=== PATIENT | male | born 1970 | race Caucasian/White ===

== ENCOUNTER → 2017-12-06 | Outpatient (CLI) | payer OTHER ==
[2017-12-06 12:41] LABS: BASO % 0.6 %; BASO ABS # 0.04 K/uL (0-0.2); EOS % 4.1 %; EOS ABS # 0.27 K/uL (0-0.5); HEMATOCRIT 46.9 % (42-52); HEMOGLOBIN 16.5 g/dL (14.0-18.0); IG# 0.01 K/uL (0.00-0.02); LYMPH % 36.4 %; MEAN CORPUSCULAR HEMOGLOBIN 30.6 pg (25-34); MEAN CORPUSCULAR HGB CONC 35.2 g/dl (32-36); MEAN PLATELET VOLUME 10.3 fL (7.4-10.4); MONO % 5.5 %; MONO ABS # 0.36 K/uL (0.11-0.59); NEUT % 53.2 %; NEUT ABS # 3.51 K/uL (1.4-6.5); PLATELET COUNT 173 K/uL (130-400); RED CELL DISTRIBUTION WIDTH CV 13.1 % (11.5-14.5); RED CELL DISTRIBUTION WIDTH SD 41.5 fL (36.4-46.3); WHITE BLOOD COUNT 6.59 K/uL (4.8-10.8)
[2017-12-06 13:04] LABS: PROLACTIN 3.89 ng/mL; TESTOSTERONE,TOTAL 347.3 ng/dl
[2017-12-06 13:05] LABS: HEMOGLOBIN A1C 5.9 % (4.5-5.6)
[2017-12-06 15:48] LABS: BLOOD UREA NITROGEN 23 mg/dl (7-18); CALCIUM 8.8 mg/dl (8.5-10.1); CARBON DIOXIDE 23 mmol/L (21-32); CHOLESTEROL 143 mg/dl (0-200); CREATININE 0.86 mg/dl (0.60-1.40); GLUCOSE 101 mg/dl (70-99); POTASSIUM 3.9 mmol/L (3.5-5.1); SODIUM 142 mmol/L (136-145)
[2017-12-06 15:58] LABS: LDL CHOLESTEROL CALCULATED 81 mg/dl
== END | disposition home or self-care (01) ==
LOC: C.LABMFLN 10:12
PROVIDERS: ATTEND Student in an Organized Health Care Education/Training Program
DX: I10 Essential (primary) hypertension (principal); N52.9 Male erectile dysfunction, unspecified; R73.9 Hyperglycemia, unspecified

== ENCOUNTER 2023-02-07 12:31 | Inpatient (IN) ==
[2023-02-07] MEDS ORDERED: PIPERACILLIN/TAZOBACTAM 4.5 GM/120 ML BAG IV ONE (12:45)
[2023-02-07] MEDS ORDERED: SODIUM CHLORIDE 0.9% 1000ML 1,000 ML IV ONE (12:45)
--- NOTE | 2023-02-07 12:50 | Emergency Department Note ---
History of Present Illness General Chief complaint: Abnormal Labs/Diagnostic Testing Stated complaint: DIVERTICULITIS,ABNORMAL CT SCAN Time Seen by Provider: 02/07/23 12:36 Source: patient, RN notes reviewed and old records reviewed (Office notes were reviewed from today) Mode of arrival: ambulatory Limitations: no limitations History of Present Illness Maximum Pain Intensity: 8 This patient is a 53-year-old male who comes in with abdominal pain since Saturday. He says has been severe at times its central and all over he says he feels when he sits down there is rectal pressure up into the abdomen. No fever but has had some chills no nausea vomiting feels extremely exhausted and tired. No blood or melena stool but his stools been loose. No chest pain or shortness of breath . no dysuria hematuria. no fall or trauma he was seen by his doctor today and they ordered outpatient labs and a CAT scan. The CAT scan showed diverticulitis with either a large diverticulum or a walled off perforation. They sent him to the ER Home Medications Medication Instructions Recorded Confirmed Type wear work shoes instead of boots #1 ea 01/05/22 11/30/22 Rx due to Winn's tendonitis atorvastatin 10 mg tablet 10 mg PO DAILY #30 tabs 11/30/22 02/07/23 Rx metformin 500 mg tablet,extended 500 mg PO BID #60 tabs 11/30/22 02/07/23 Rx release 24hr sertraline 100 mg tablet 150 mg PO .QHS #45 tabs 11/30/22 02/07/23 Rx triamterene 37.5 1 cap PO QAM #30 caps 11/30/22 02/07/23 Rx mg-hydrochlorothiazide 25 mg capsule lancets (Accu-Chek Softclix #100 ea 12/10/22 Rx Lancets) blood sugar diagnostic #100 ea 12/31/22 Rx Allergies Allergy/AdvReac Type Severity Reaction Status Date / Time No Known Allergies Allergy Unknown Verified 02/07/23 09:29 Past Med/Surg History Medical History Allergic rhinitis Anxiety Chronic low back pain Cough Dyslipidemia Dyslipidemia Has daytime drowsiness Hyperglycemia Hypertension Hypertension Left Achilles tendinitis Meniere's disease Meniere's disease of left ear Onychomycosis ZULMA (obstructive sleep apnea) Prediabetes Restless leg syndrome Right rotator cuff tendinitis Snoring Tinnitus of left ear Type 2 diabetes mellitus Urinary frequency Vasovagal episode Witnessed apneic spells Surgical History History of wisdom tooth extraction Hx of inguinal hernia surgery Status post tonsillectomy Family History Mother Breast cancer Grandmother (Maternal) Family history of diabetes mellitus Grandmother (Paternal) Family history of esophageal cancer Other No family history of adverse response to anesthesia Social History Smoking Status: Former smoker Age Started Using Tobacco: 10; Second Hand Exposure: Yes (fiance smokes/parents smoked); Do You Dip or Chew Tobacco: No; Hx Alcohol Use: Yes Alcohol type: other Hx Substance Use: No Preferred Language: Tamazight Communication Ability: Effective Layer Off Required: No Beliefs That Will Affect Care: None Current Living Situation: Spouse Current Living Situation Comment: Lives with ellen Other Information That Helps Us Care for You: No Feels Safe at Home: Yes Safety Concerns: Feels Safe At This Time Childhood Exposure to Second-Hand Smoke: Yes Assistive Devices: Glasses Review of Systems A total of 10 systems reviewed and were otherwise negative Physical Exam Vital Signs Vital Signs - 24 hr 02/07/23 12:32 02/07/23 13:03 02/07/23 14:30 Temperature 38.0 C H Temperature Source Temporal Artery Scan Pulse Rate 76 Pulse Rate [Apical] 73 71 Respiratory Rate 18 20 18 Respiratory Effort / Characteristics Non-Labored Spontaneous Non-Labored Spontaneous Non-Labored Spontaneous Respiratory Depth Normal Normal Normal Blood Pressure 130/84 Blood Pressure [Right Arm] 131/84 129/73 Blood Pressure Mean 99 Blood Pressure Mean [Right Arm] 99 91 Blood Pressure Position Sitting Pulse Oximetry 94 96 94 Oxygen Delivery Method Room Air Room Air Room Air Sepsis Recent Fever Within 48 Hours Yes Sepsis New/Unexplained Change in Mental Status No Sepsis Action Taken by Nursing No Action Required General: Well developed well nourished [id number] middle-age male who in no acute distress, breathing comfortably on room air. Normal speech HEENT: Normal cephalic atraumatic. Pupils are equal round and reactive to light. Extraocular movements are intact. Oropharynx is pink with moist mucous membranes. No swelling of the mouth lips or tongue. Neck: Supple with a midline trachea. No meningeal signs or stiffness, no JVD or bruits. No Stridor. Chest: Clear to auscultation bilaterally. No wheezes or rhonchi. No increased work of breathing. Heart: Regular rate and rhythm without murmurs or gallops. Abdomen: Soft moderately tender diffusely mostly centrally without rebound guarding or rigidity. Extremities: No cyanosis clubbing or edema. No calf tenderness or assymetry Spine/Back. Non tender to palpation. No CVA tenderness Skin: Good turgor without rashes. Neurologic exam: Cranial nerves two through 12 are intact. Motor and sensation are intact and symmetrical throughout. Course Administered Medications Enoxaparin Sodium (Enoxaparin Inj 40 Mg/0.4 Ml Syr) 40 mg SQ Q24H [facility] Stop: 03/09/23 15:53 Last Admin: 02/07/23 18:13 Dose: 40 mg Documented By: HEYDI Lactated Ringer's (Lr) 1,000 mls @ 100 mls/hr IV .Q10H ARLYN Stop: 02/08/23 14:59 Last Admin: 02/07/23 17:22 Dose: 100 mls/hr Documented By: HEYDI Piperacillin Sod/Tazobactam (Sod 4.5 gm/ Dextrose) 120 mls @ 30 mls/hr IV Q8H [facility]; Protocol Stop: 02/17/23 15:53 Last Admin: 02/07/23 18:13 Dose: 30 mls/hr Documented By: HEYDI Insulin Aspart (Insulin Aspart Per Unit Charge) 0 units SC Q6H ARLYN Stop: 03/09/23 15:14 Last Admin: 02/07/23 17:28 Dose: Not Given Documented By: HEYDI Discontinued Medications Sodium Chloride (Nss 1000ml) 1,000 mls @ 999 mls/hr IV .Q1H1M ONE Stop: 02/07/23 13:45 Last Infusion: 02/07/23 14:02 Dose: 0 mls/hr Documented By: Admin: 02/07/23 12:59 Dose: 999 mls/hr Documented By: MICKEY Piperacillin Sod/Tazobactam Sod (Zosyn) 4.5 gm in 120 mls @ 240 mls/hr IV NOW ONE Stop: 02/07/23 13:14 Last Infusion: 02/07/23 14:02 Dose: 0 mls/hr Documented By: Admin: 02/07/23 12:59 Dose: 240 mls/hr Documented By: MICKEY Medical Decision Making Differential Diagnosis Diverticulitis, perforation, diverticular abscess, electrolyte or metabolic abnormality Medical Records Attestation: I reviewed the patient's medical records. Home Medications Current Medication List: was personally reviewed by me Laboratory Data Attestation: I reviewed the patient's lab results. Lab Results 02/07/23 02/07/23 02/07/23 Range/Units 12:52 12:54 13:15 Lactate 0.9 (0.4-2.0) mmol/L Lipase 42 (11-82) U/L SARS-CoV-2, RNA, NAAT NEGATIVE (NEGATIVE) Imaging Data Attestation: I personally reviewed and interpreted this imaging study as follows: My Impression: I reviewed the images that the patient had done as an outpatient of CAT scan of the abdomen and pelvis. There was no free air or obstruction. There are changes consistent with diverticulitis Radiologist's Impression: CAT scan of the abdomen pelvis done as an outpatient today showed a large diverticulum versus contained perforation of the left side of the distal sigmoid colon measuring 2.6 cm with inflammatory surrounding changes consistent with acute diverticulitis ECG Data Attestation: I personally reviewed and interpreted this ECG as follows: Indication: + abdominal pain Rate (beats per minute): 75 Rhythm: + normal sinus ECG Intervals/blocks: + Normal QRS, + Normal QT and + Normal MO ECG Bieber: + Normal ECG ST segments: + Normal ST segments ECG Findings: no PACs or no PVCs Comparison ECG Date: from (01/03/21) Change: no significant change MDM Narrative This patient was sent to the ER after having abnormal CAT scan and it looks like he has diverticulitis and possibly a perforation. He does have a temperature 38 here. He was hydrated with IV normal saline blood work was obtained including blood cultures and lactic acid and other blood testing. I did give him Zosyn 4.5 g IV. His white count was elevated his lactic acid is not. He is normotensive. He was hydrated with normal saline and is well as given the antibiotics. I did discuss the case with Laura Peralta, who is on-call for surgery and did not feel is likely acute surgical issue and they would follow the patient along and have the patient admitted to medicine. I did consult the [facility] group, and they will be admitted him to the hospital for admission. Continuous cardiac monitoring: Orders placed in EMR for continuous cardiac monitoring: Upon my evaluation the patient was noted be in normal sinus rhythm with a rate of 70 Impression & Plan Acute diverticulitis, Type 2 diabetes mellitus, Abdominal pain, Lab test negative for COVID-19 virus Discharge Plan Visit Data Chief Complaint: Abnormal Labs/Diagnostic Testing Stated Complaint: DIVERTICULITIS,ABNORMAL CT SCAN ED Provider: Dewey Bhatti Discharge Problem: Acute diverticulitis, Type 2 diabetes mellitus, Abdominal pain, Lab test negative for COVID-19 virus Patient Disposition: Admitted As Inpatient Discharge Instructions Interventions: ED Discharge Assessment Last Done: 02/07/23 15:23
--- NOTE | 2023-02-07 14:19 | Electrocardiogram Report ---
Test Reason : Blood Pressure : / mmHG Vent. Rate : 075 BPM Atrial Rate : 075 BPM P-R Int : 164 ms QRS Dur : 090 ms QT Int : 382 ms P-R-T Axes : 046 020 032 degrees QTc Int : 426 ms Normal sinus rhythm Normal ECG When compared with ECG of 03-JAN-2005 09:57, No significant change was found Confirmed by Mason Carty ([id number]) on 02/07/2023 2:19:40 PM Referred By: REFERRED SELF Confirmed By:Luis Carty
--- NOTE | 2023-02-07 14:52 | History & Physical Report ---
Date of Service February 07, 2023 Assessment & Plan (1) Acute diverticulitis: Plan: -Admit to med/surge -The patient is currently afebrile, hemodynamically stable, and stable on RA -Has been experiencing LLQ abd pain and non-bloody diarrhea since Saturday -Outpatient CT of the abd/pelvis today shows acute diverticulitis with a 2.6 cm area in the distal sigmoid colon which may represent a contained perforation -Mild leukocytosis, lactate WNL, evaluated by Gen Surgery who recs conservative management for now, they will continue to follow -S/P one dose of Zosyn in the ED, will continue with Zosyn q8h for now -Will keep NPO except meds for now, continue IV fluids while NPO -Pain control with prn IV tylenol and IV morphine for severe pain -BL SCD's and Sub-Q lovenox for DVT PPX -AM CBC, CMP, Mag, PT/INR (2) Diarrhea: Plan: -Stool cultures and C. diff screen ordered (3) Hypertension: Plan: -Stable -Hold Triamterene-HCTZ for now while NPO to avoid dehydration and hypotension (4) Type 2 diabetes mellitus: Plan: -Hold metformin -Monitor BSG q6h while NPO, goal is 110-140 -Start 5 units lantus BID and correction factor of 50 while npo, can escalate as needed -NPO except meds for now (5) Dyslipidemia: Plan: -Continue statin (6) ZULMA (obstructive sleep apnea): Plan: -HS CPAP ordered Plan The patient was discussed with Dr. Morel at the time of the admission History of Present Illness Chief Complaint: Abnormal outpatient CT findings Primary Care Provider: Epifanio Ocampo MD Elliot is a 53 year old male with a PMH significant for DM II, dyslipidemia, ZULMA, HTN, Meniere's disease, and anxiety who presented to the [facility] ED on 02/07/23 at the recommendation of his PCP for abnormal outpatient CT results. Per the ED staff and chart review, the patient has been experiencing progressive abdominal pain and diarrhea. He was seen for these symptoms earlier today by his PCP who ordered a CT of the abd/pelvis with IV contrast. The CT was read as "1. There is a large diverticulum versus contained perforation along the left side of the distal sigmoid colon which measures 2.6 cm. This demonstrates surrounding inflammatory change is consistent with an acute diverticulitis.2. Cholelithiasis. 3. Heterogeneous area of enhancement within the upper pole of the left kidney. No surrounding inflammatory change. This is indeterminate but could be due to a focal pyelonephritis. Recommend correlation with urinalysis.". His PCP recommended he come to the ED for further evaluation and treatment. In the ED the patient was found to be afebrile, hemodynamically stable, and stable on RA. Labs were remarkable for a leukocytosis of 12.94 with left shift of 9.32, stable Hgb and platelets, stable Cr and electrolytes, lactate of 0.9, LFT's WNL, lipase of 42, UA with 2+ ketones otherwise WNL, and covid negative. The ED staff spoke with General Surgery who recommended conservative management for now with IV antibiotics, bowel rest, and IV fluids. Prior to admission the patient was given a dose of Zosyn and a 1L NSS bolus. At the time of the exam the patient was lying in bed in no acute distress, he had just been evaluated by the Surgical Team. He states that he started to develop severe, intermittent, sharp, LLQ abdominal pain on Saturday. He states that he then began to develop multiple episodes daily of non-bloody diarrhea. He states that he would often get the sensation that he needed to have a bowel movement but would then either have a small BM or none at all. He denies the abdominal pain radiating anywhere else, he does not think his pain is influenced with eating or drinking. He did not take any medications for his symptoms as he thought it was a viral GI infection. He denies recent fevers or chills, chest pain, nausea, vomiting, dysuria, hematuria, melena, LE swelling and recent trauma. We discussed code status, the patient is a Full Code and would want his to make medical decisions for him if he could not make them himself. Please refer to Dr. Morel's attestation for any changes to the treatment plan Allergies Allergy/AdvReac Type Severity Reaction Status Date / Time No Known Allergies Allergy Unknown Verified 02/07/23 09:29 Home Medications Medication Instructions Recorded Confirmed Type wear work shoes instead of boots #1 ea 01/05/22 11/30/22 Rx due to Whitney's tendonitis atorvastatin 10 mg tablet 10 mg PO DAILY #30 tabs 11/30/22 02/07/23 Rx metformin 500 mg tablet,extended 500 mg PO BID #60 tabs 11/30/22 02/07/23 Rx release 24hr sertraline 100 mg tablet 150 mg PO .QHS #45 tabs 11/30/22 02/07/23 Rx triamterene 37.5 1 cap PO QAM #30 caps 11/30/22 02/07/23 Rx mg-hydrochlorothiazide 25 mg capsule lancets (Accu-Chek Softclix #100 ea 12/10/22 Rx Lancets) blood sugar diagnostic #100 ea 12/31/22 Rx Past Med/Surg History Medical History Allergic rhinitis Anxiety Chronic low back pain Cough Dyslipidemia Dyslipidemia Has daytime drowsiness Hyperglycemia Hypertension Hypertension Left Achilles tendinitis Meniere's disease Meniere's disease of left ear Onychomycosis ZULMA (obstructive sleep apnea) Prediabetes Restless leg syndrome Right rotator cuff tendinitis Snoring Tinnitus of left ear Type 2 diabetes mellitus Urinary frequency Vasovagal episode Witnessed apneic spells Surgical History History of wisdom tooth extraction Hx of inguinal hernia surgery Status post tonsillectomy Family History Mother Breast cancer Grandmother (Maternal) Family history of diabetes mellitus Grandmother (Paternal) Family history of esophageal cancer Other No family history of adverse response to anesthesia Social History Smoking Status: Former smoker Age Started Using Tobacco: 10; Second Hand Exposure: Yes (fiance smokes/parents smoked); Do You Dip or Chew Tobacco: No; Hx Alcohol Use: Yes Alcohol type: other Hx Substance Use: No Preferred Language: Honduran Communication Ability: Effective Operations And Maintenance Technician Required: No Beliefs That Will Affect Care: None Current Living Situation: Spouse Current Living Situation Comment: Lives with fiance Other Information That Helps Us Care for You: No Feels Safe at Home: Yes Safety Concerns: Feels Safe At This Time Childhood Exposure to Second-Hand Smoke: Yes Assistive Devices: Glasses Review of Systems Review of Systems: Denies current fever, chills, headache, changes in vision, hearing, taste, and smell, chest pain, SOB, cough, nausea, vomiting, hematemesis, melena, dysuria, hematuria, and recent falls. All systems have been reviewed and are otherwise negative. Physical Exam Physical Exam: Physical Exam: General: In no acute distress, stated age, well-nourished, good hygiene HEENT: Normocephalic, atraumatic, no scleral icterus, pupils around round, symmetrical, and reactive to light, dry mucus membranes, trachea midline, no thyromegaly Chest/Pulm: No respiratory distress, symmetrical chest expansion, clear breath sounds throughout Cardiac: RRR, no murmurs noted Abdomen: Negative for ascites and bruising, hyperactive bowel sounds, soft, tender to palpation in the LLQ otherwise non-tender to palpation Musculoskeletal: Symmetrical and without signs of acute trauma, upper and lower extremities with full ROM, no atrophy, spasticity, or flaccidity Extremities: Radial, dorsalis pedis, and posterior tibial pulses are intact and symmetrical, no edema noted in the BL LE's Skin: Warm, dry, no rashes , lesions, or scars noted Neuro: Alert and oriented to person, place, month, year, and president, no focal defects, no tremors noted Psych: No acute distress, calm and cooperative during the exam Results & Data Results & Data Vital Signs (Past 12 Hours) Vital Signs Temp Pulse Pulse Resp BP BP Pulse Ox 02/07/23 14:30 71 18 129/73 94 02/07/23 13:03 73 20 131/84 96 02/07/23 12:32 38.0 C H 76 18 130/84 94 O2 Del Method 02/07/23 14:30 Room Air 02/07/23 13:03 Room Air 02/07/23 12:32 Room Air Laboratory Results Laboratory Results - last 24 hr 02/07/23 02/07/23 02/07/23 12:52 12:54 13:15 Lactate 0.9 Lipase 42 SARS-CoV-2, RNA, NAAT NEGATIVE Diagnostic Findings ABDOMEN AND PELVIS CT WITH IV CONTRAST CT DOSE: 918.16 mGy.cm HISTORY: Nausea. Vomiting. R19.7 - Diarrhea, unspecified TECHNIQUE: Multiaxial CT images of the abdomen and pelvis were performed following the use of intravenous contrast. A dose lowering technique was utilized adhering to the principles of ALARA. COMPARISON STUDY: None. FINDINGS: The lung bases are clear. No pneumoperitoneum. No pneumatosis. No acute fractures identified. Hepatic steatosis. Areas of focal fatty sparing at the tereso hepatis and adjacent to the gallbladder fossa. There is a 1 cm stone within the gallbladder fundus. No gallbladder wall thickening. The pancreas, spleen, and adrenal glands unremarkable. The main portal vein is patent. No retroperitoneal lymphadenopathy. Normal caliber abdominal aorta. There are 2 subcentimeter hypodense lesions within the right kidney with the largest measuring 8 mm. These are technically too small to characterize but favor cysts. No hydronephrosis. Focal area of heterogeneous enhancement within the upper pole of the left kidney on image 155. The bladder is not well-distended but appears unremarkable. No pelvic free fluid or pelvic lymphadenopathy. No evidence for bowel obstruction. Normal appendix. Focal thickening within the distal sigmoid colon with pericolonic fat stranding. There is a large diverticulum versus contained perforation along the left side of the distal sigmoid colon which measures 2.6 cm. This demonstrates surrounding inflammatory change and is consistent with an acute diverticulitis. Additional scattered diverticula are seen within the colon. IMPRESSION: 1. There is a large diverticulum versus contained perforation along the left side of the distal sigmoid colon which measures 2.6 cm. This demonstrates surrounding inflammatory change is consistent with an acute diverticulitis. 2. Cholelithiasis. 3. Heterogeneous area of enhancement within the upper pole of the left kidney. No surrounding inflammatory change. This is indeterminate but could be due to a focal pyelonephritis. Recommend correlation with urinalysis. ACT 112: Negative or not required by law. Electronically signed by: Giuliano Haque M.D. ECG Additional Comments: Normal sinus rhythm Normal ECG When compared with ECG of 03-JAN-2005 09:57, No significant change was found Confirmed by Mason Carty ([id number]) on 02/07/2023 2:19:40 PM Code Status & VTE Plan Code Status Full code VTE Prophylaxis Plan VTE Prophylaxis will be ordered: Yes Supervising Physician Co-Signing Physician Notes I personally saw and examined the patient. I verified all perry points and agree with John Murillo PA-C with the following exceptions and/or additions: 53 year old male who presents to the ER with abdominal pain for 3 days, LLQ, no radiation, progressively getting worse. O/E A&Ox3, HS RRR, no murmurs, Chest CTAB, Abdo LLQ pain without guarding or rebound tenderness A/P Acute diverticulitis - recommend NPO currently, IV Zosyn, IV fluids (LR) PG Care Time/CCT Total # of Minutes Spent Total Time Spent with Patient: Total time spent is greater than 50% in coordination of care (as documented) at patient's floor/unit and/or counseling patient: Coding [place] [address] INT INP/OBS CARE 2/55MIN Patient Type Established Medical Decision Making Moderate Complexity Diagnoses Acute diverticulitis K57.92 Diarrhea R19.7 Hypertension I10 Type 2 diabetes mellitus E11.9 Dyslipidemia E78.5 ZULMA (obstructive sleep apnea) G47.33
[2023-02-07] MEDS ORDERED: ACETAMINOPHEN 1,000 MG/100 ML VIAL IV PRN (14:53)
[2023-02-07] MEDS ORDERED: MoRPHine SULFATE 2 MG/ML CARP IV PRN (14:53)
[2023-02-07] MEDS ORDERED: CARBOHYDRATES FOR HYPOGLYCEMIA PO PRN (15:10)
[2023-02-07] MEDS ORDERED: GLUCAGON FOR INJ 1 MG VIAL SQ PRN (15:10)
[2023-02-07] MEDS ORDERED: GLUCOSE 10 TAB/TUBE PO PRN (15:10)
[2023-02-07] MEDS ORDERED: DEXTROSE 50% 50 ML SYRINGE IV PRN (15:10)
[2023-02-07] MEDS ORDERED: GLUCOSE 40% GEL 15 GM TUBE PO PRN (15:10)
[2023-02-07] MEDS ORDERED: INSULIN ASPART PER UNIT CHARGE SC SCH (15:15)
--- NOTE | 2023-02-07 15:39 | Surgery Consultation ---
Date of Consultation February 07, 2023 Assessment & Plan (1) Acute diverticulitis: (2) Abdominal pain: Plan 53 year-old male with 4 day history of abdominal pain with diarrhea. Found to have acute diverticulitis with possible abscess measuring 2.6 cm. Leukocytosis of 12.9K. Febrile here in ED. Hemodynamically stable, abdominal exam without peritonitis or rebound but tenderness in the LLQ on palpation. Plan: Recommend conservative management with IV antibiotics, pain management as needed, antiemetics as needed. Okay for clear liquids repeat am labs encourage ambulation dr. Cosme has seen and examined patient, agrees with above. Supervising Physician Co-Signing Physician Notes I have seen and examined the patient personally and agree with the above assessment and plan. Acute diverticulitis with possible small abscess versus large diverticulum. Plan for IV antibiotics and liquid diet. No surgical intervention required at this time. We will continue to follow for resolution. History of Present Illness Reason for Consultation: acute diverticulitis with possible abscess Requesting Physician: John Murillo PA-C Attending Physician: Bebeto Morel MD History of Present Illness Elliot is a 53 year-old male with history of type 2 diabetes, ZULMA, hypertension, dyslipidemia, allergic rhinitis, meniere's disease, chronic low back pain who presented to ED from outpatient evaluation with his PCP office for increasing abdominal pain that started on Saturday. States he thought he had some viral illness due to pain and diarrhea however starting having increasing pain with some rectal pressure/pain. Had outpatient CT scan of abdomen/pelvis with IV contrast showing diverticulitis with either large diverticulum vs contained perforation and abscess. Wbc slightly elevated at 12.9K. Denies of any fevers at home but had chills. No vomiting. Has had history of abdominal pain and diarrhea in past but thought it was viral illness, never had history of diverticulitis per his knowledge. Had a colonoscopy last year which showed diverticulosis. Allergies Allergy/AdvReac Type Severity Reaction Status Date / Time No Known Allergies Allergy Unknown Verified 02/07/23 09:29 Home Medications Medication Instructions Recorded Confirmed Type wear work shoes instead of boots #1 ea 01/05/22 11/30/22 Rx due to Whitney's tendonitis atorvastatin 10 mg tablet 10 mg PO DAILY #30 tabs 11/30/22 02/07/23 Rx metformin 500 mg tablet,extended 500 mg PO BID #60 tabs 11/30/22 02/07/23 Rx release 24hr sertraline 100 mg tablet 150 mg PO .QHS #45 tabs 11/30/22 02/07/23 Rx triamterene 37.5 1 cap PO QAM #30 caps 11/30/22 02/07/23 Rx mg-hydrochlorothiazide 25 mg capsule lancets (Accu-Chek Softclix #100 ea 12/10/22 Rx Lancets) blood sugar diagnostic #100 ea 12/31/22 Rx Patient History Medical History Allergic rhinitis Anxiety Chronic low back pain Cough Dyslipidemia Dyslipidemia Has daytime drowsiness Hyperglycemia Hypertension Hypertension Left Achilles tendinitis Meniere's disease Meniere's disease of left ear Onychomycosis ZULMA (obstructive sleep apnea) Prediabetes Restless leg syndrome Right rotator cuff tendinitis Snoring Tinnitus of left ear Type 2 diabetes mellitus Urinary frequency Vasovagal episode Witnessed apneic spells Surgical History History of wisdom tooth extraction Hx of inguinal hernia surgery Status post tonsillectomy Family History Mother Breast cancer Grandmother (Maternal) Family history of diabetes mellitus Grandmother (Paternal) Family history of esophageal cancer Other No family history of adverse response to anesthesia Social History Smoking Status: Former smoker Age Started Using Tobacco: 10; Second Hand Exposure: Yes (fiance smokes/parents smoked); Hx Alcohol Use: Yes Alcohol type: beer Hx Substance Use: No Preferred Language: Prydeinig Communication Ability: Effective Sandblaster Supervisor Required: No Beliefs That Will Affect Care: None Current Living Situation: Significant Other Current Living Situation Comment: Lives with ellen Feels Safe at Home: Yes Childhood Exposure to Second-Hand Smoke: Yes Assistive Devices: Glasses Physical Exam Constitutional: WD/WN, vitals as above cooperative and comfortable; no acute distress, not ill appearing and not in distress Respiratory: normal respiratory effort, lungs clear to auscultation Cardiovascular: Rate/Rhythm: regular rate and regular rhythm Gastrointestinal (Abdomen): Inspection/Auscultation: abdomen normal to inspe ction; abdomen not distended Percussion/Palpation: + abdomen tender (LLQ) and abdomen soft; no guarding, abdomen not rigid and abdomen not firm Skin: no rashes, warm and dry Psychiatric: A+Ox3, euthymic affect Results & Data Vital Signs (Past 12 Hours) Vital Signs Temp Pulse Pulse Resp BP BP Pulse Ox 02/07/23 14:30 71 18 129/73 94 02/07/23 13:03 73 20 131/84 96 02/07/23 12:32 38.0 C H 76 18 130/84 94 O2 Del Method 02/07/23 14:30 Room Air 02/07/23 13:03 Room Air 02/07/23 12:32 Room Air Laboratory Results 02/07/23 02/07/23 02/07/23 Range/Units 13:15 12:54 12:52 Lactate 0.9 (0.4-2.0) mmol/L Lipase 42 (11-82) U/L SARS-CoV-2, RNA, NAAT NEGATIVE (NEGATIVE) Diagnostic Findings ABDOMEN AND PELVIS CT WITH IV CONTRAST CT DOSE: 918.16 mGy.cm HISTORY: Nausea. Vomiting. R19.7 - Diarrhea, unspecified TECHNIQUE: Multiaxial CT images of the abdomen and pelvis were performed following the use of intravenous contrast. A dose lowering technique was utilized adhering to the principles of ALARA. COMPARISON STUDY: None. FINDINGS: The lung bases are clear. No pneumoperitoneum. No pneumatosis. No acute fractures identified. Hepatic steatosis. Areas of focal fatty sparing at the tereso hepatis and adjacent to the gallbladder fossa. There is a 1 cm stone within the gallbladder fundus. No gallbladder wall thickening. The pancreas, spleen, and adrenal glands unremarkable. The main portal vein is patent. No retroperitoneal lymphadenopathy. Normal caliber abdominal aorta. There are 2 subcentimeter hypodense lesions within the right kidney with the largest measuring 8 mm. These are technically too small to characterize but favor cysts. No hydronephrosis. Focal area of heterogeneous enhancement within the upper pole of the left kidney on image 155. The bladder is not well-distended but appears unremarkable. No pelvic free fluid or pelvic lymphadenopathy. No evidence for bowel obstruction. Normal appendix. Focal thickening within the distal sigmoid colon with pericolonic fat stranding. There is a large diverticulum versus cont ained perforation along the left side of the distal sigmoid colon which measures 2.6 cm. This demonstrates surrounding inflammatory change and is consistent with an acute diverticulitis. Additional scattered diverticula are seen within the colon. IMPRESSION: 1. There is a large diverticulum versus contained perforation along the left side of the distal sigmoid colon which measures 2.6 cm. This demonstrates surrounding inflammatory change is consistent with an acute diverticulitis. 2. Cholelithiasis. 3. Heterogeneous area of enhancement within the upper pole of the left kidney. No surrounding inflammatory change. This is indeterminate but could be due to a focal pyelonephritis. Recommend correlation with urinalysis.
[2023-02-07] MEDS: LACTATED RINGER'S 1,000 ML IV SCH (17:22)
[2023-02-07] MEDS: PIPERACILLIN/TAZOBACTAM 4.5 GM in DEXTROSE 5% 100 ML IV SCH (18:13)
[2023-02-07] MEDS: ENOXAPARIN INJ 40 MG/0.4 ML SYR SQ SCH (18:13)
[2023-02-07] MEDS ORDERED: Nursing to Pharmacy Communication SCH (19:15)
[2023-02-07] MEDS: SERTRALINE HCL 50 MG TABLET PO SCH (20:07)
[2023-02-07] MEDS ORDERED: LANTUS PER UNIT CHARGE SQ SCH (21:00)
[2023-02-08] MEDS: INSULIN ASPART PER UNIT CHARGE SC SCH ×4 (00:14→21:57)
[2023-02-08] MEDS: LACTATED RINGER'S 1,000 ML IV SCH ×2 (01:28→11:20)
[2023-02-08] MEDS: PIPERACILLIN/TAZOBACTAM 4.5 GM in DEXTROSE 5% 100 ML IV SCH ×3 (01:29→17:36)
[2023-02-08 07:47] LABS: Basophils # (auto) 0.05 K/uL (0-0.2); Basophils % (auto) 0.4 %; Eosinophils # (auto) 0.28 K/uL (0-0.50); Eosinophils % (auto) 2.2 %; Hematocrit (blood only) 42.7 % (42.0-52.0); Hemoglobin 14.6 g/dl (14.0-18.0); Immature Granulocytes # (auto) 0.04 K/uL (0.01-0.20); Immature Granulocytes % (auto) 0.3 %; Lymphocytes # (auto) 2.46 K/uL (1.2-3.4); Lymphocytes % (auto) 19.7 %; Mean Corpuscular Hemoglobin 30.4 pg (25.0-34.0); Mean Corpuscular Hgb Conc 34.2 g/dL (32.0-36.0); Mean Corpuscular Volume 88.8 fL (80.0-100.0); Mean Platelet Volume 9.8 fL (9.4-12.4); Monocytes # (auto) 1.09 K/uL (0.11-0.59); Monocytes % (auto) 8.7 %; Neutrophils # (auto) 8.59 K/uL (1.40-6.50); Neutrophils % (auto) 68.7 %; Platelet Count 152 K/uL (130-400); RDW Coefficient of Variation 12.7 % (11.5-14.5); RDW Standard Deviation 41.2 fL (36.4-46.3); Red Blood Count 4.81 M/uL (4.70-6.10); White Blood Count 12.51 K/ul (4.8-10.8)
[2023-02-08 08:15] LABS: Albumin Globulin Ratio 1.4 (0.9-2); Albumin Level 3.5 gm/dl (3.4-5.0); BUN Creatinine Ratio 15.7 (10-20); Bilirubin,Total 0.9 mg/dl (0.2-1.0); Calcium 8.8 mg/dl (8.6-10.3); Creatinine Clr Calc Pharmacy 111.4 ml/min; Est GFR (African American) 111.6 ml/min; Est GFR (Non-African American) 96.3 ml/min; Globulin 2.5 gm/dl (2.5-4.0); Magnesium 2.1 mg/dl (1.7-2.4)
[2023-02-08 08:22] LABS: INR 1.1 (0.9-1.1); Prothrombin Time 11.3 Seconds (9.0-12.0)
--- NOTE | 2023-02-08 08:45 | Surgery Progress Note ---
Date of Service February 08, 2023 Assessment & Plan (1) Acute diverticulitis: (2) Abdominal pain: Plan 53 year-old male with 4 day history of abdominal pain with diarrhea. Found to have acute diverticulitis with possible abscess measuring 2.6 cm. Leukocytosis of 12.9K. Febrile here in ED. 02/08/2023: avss leukocytosis 12k abdominal pain improving currently 11/27 Plan: Recommend conservative management with IV antibiotics, pain management as needed, antiemetics as needed. Okay for clear liquids repeat am labs encourage ambulation Dr. Griggs covering the weekend dr. Cosme has seen and examined patient, agrees with above. Admission and Anticipated Discharge Date Admission Date: February 07, 2023 Supervising Physician Co-Signing Physician Notes I have seen and examined the patient, and agree with above assessment and plan. We will continue conservative management with IV antibiotics, pain management. We will advance to clear liquid diet. We will slowly advance diet as tolerated. Subjective feeling better today pain currently 11/27 no n,v no fevers or chills Physical Exam Constitutional: WD/WN, vitals as above cooperative and comfortable; no acute distress and not ill appearing Gastrointestinal (Abdomen): Inspection/Auscultation: abdomen normal to inspection; abdomen not distended Percussion/Palpation: + abdomen tender (LLQ and suprapubic) and abdomen soft; no guarding, abdomen not rigid and abdomen not firm Skin: no rashes, warm and dry Psychiatric: A+Ox3, euthymic affect Results & Data Vital Signs (Past 12 Hours) Vital Signs Temp Pulse Pulse Pulse Resp BP Pulse Ox 02/08/23 08:03 36.5 C 55 L 18 139/72 95 02/07/23 22:58 37 C 65 18 125/75 95 02/07/23 22:50 60 16 96 O2 Del Method 02/08/23 08:03 Room Air 02/07/23 22:58 Room Air 02/07/23 22:50 Laboratory Results 02/08/23 02/08/23 02/08/23 Range/Units Unknown Unknown 07:18 WBC (4.8-10.8) K/ul RBC (4.70-6.10) M/uL Hgb (14.0-18.0) g/dl Hct (42.0-52.0) % MCV (80.0-100.0) fL MCH (25.0-34.0) pg MCHC (32.0-36.0) g/dL RDW Std Deviation (36.4-46.3) fL RDW Coeff of Ahsan (11.5-14.5) % Plt Count (130-400) K/uL MPV (9.4-12.4) fL Immature Gran % (Auto) % Neut % (Auto) % Lymph % (Auto) % Carlton % (Auto) % Eos % (Auto) % Baso % (Auto) % Neut # (Auto) (1.40-6.50) K/uL Lymph # (Auto) (1.2-3.4) K/uL Carlton # (Auto) (0.11-0.59) K/uL Eos # (Auto) (0-0.50) K/uL Baso # (Auto) (0-0.2) K/uL Immature Gran # (Auto) (0.01-0.20) K/uL PT (9.0-12.0) Seconds INR (0.9-1.1) Sodium 142 (136-145) mmol/L Potassium 4.0 (3.5-5.1) mmol/L Chloride 108 H (98-107) mmol/L Carbon Dioxide 29 (21-32) mmol/L Anion Gap 5 (3-11) BUN 14 (6-23) mg/dl Creatinine 0.89 (0.6-1.4) mg/dl Est Cr Clr Drug Dosing 111.4 ml/min Est GFR ( Amer) 111.6 ml/min Est GFR (Non-Af Amer) 96.3 ml/min BUN/Creatinine Ratio 15.7 (10-20) Glucose 99 (70-99(Fasting)) mg/dl POC Glucose (70-99) mg/dl Lactate (0.4-2.0) mmol/L Calcium 8.8 (8.6-10.3) mg/dl Magnesium 2.1 (1.7-2.4) mg/dl Total Bilirubin 0.9 (0.2-1.0) mg/dl AST 12 L (13-39) U/L ALT 15 (7-52) U/L Alkaline Phosphatase 39 (34-104) U/L Total Protein 6.0 (6.0-8.3) gm/dl Albumin 3.5 (3.4-5.0) gm/dl Globulin 2.5 (2.5-4.0) gm/dl Albumin/Globulin Ratio 1.4 (0.9-2) Lipase (11-82) U/L Stl C. cayetanensis PCR Pending Stool Rotavirus A PCR Pending Stl Adenov F 40/41 PCR Pending Stool Astrovirus (PCR) Pending Stool Campylobacter PCR Pending Stl C. diff Tox B Gene Pending Stool Cryptosporidium PCR Pending Stl E.coli Shiga Tox PCR Pending Stl Enterotoxigenic E PCR Pending Stool EAEC (PCR) Pending Stl E. histolytica PCR Pending Stool Giardia Lamblia PCR Pending Stool Salmonella PCR Pending Stool Sapovirus (PCR) Pending Stl P. shigelloides PCR Pending Stl Shigella/EIEC PCR Pending St Y.enterocolitica PCR Pending Stool Vibrio (PCR) Pending Stl Vibrio cholerae PCR Pending Stl Norovirus GI/GII PCR Pending SARS-CoV-2, RNA, NAAT (NEGATIVE) 02/08/23 02/08/23 02/08/23 Range/Units 07:18 07:18 06:16 WBC 12.51 H (4.8-10.8) K/ul RBC 4.81 (4.70-6.10) M/uL Hgb 14.6 (14.0-18.0) g/dl Hct 42.7 (42.0-52.0) % MCV 88.8 (80.0-100.0) fL MCH 30.4 (25.0-34.0) pg MCHC 34.2 (32.0-36.0) g/dL RDW Std Deviation 41.2 (36.4-46.3) fL RDW Coeff of Ahsan 12.7 (11.5-14.5) % Plt Count 152 (130-400) K/uL MPV 9.8 (9.4-12.4) fL Immature Gran % (Auto) 0.3 % Neut % (Auto) 68.7 % Lymph % (Auto) 19.7 % Carlton % (Auto) 8.7 % Eos % (Auto) 2.2 % Baso % (Auto) 0.4 % Neut # (Auto) 8.59 H (1.40-6.50) K/uL Lymph # (Auto) 2.46 (1.2-3.4) K/uL Carlton # (Auto) 1.09 H (0.11-0.59) K/uL Eos # (Auto) 0.28 (0-0.50) K/uL Baso # (Auto) 0.05 (0-0.2) K/uL Immature Gran # (Auto) 0.04 (0.01-0.20) K/uL PT 11.3 (9.0-12.0) Seconds INR 1.1 (0.9-1.1) Sodium (136-145) mmol/L Potassium (3.5-5.1) mmol/L Chloride (98-107) mmol/L Carbon Dioxide (21-32) mmol/L Anion Gap (3-11) BUN (6-23) mg/dl Creatinine (0.6-1.4) mg/dl Est Cr Clr Drug Dosing ml/min Est GFR ( Amer) ml/min Est GFR (Non-Af Amer) ml/min BUN/Creatinine Ratio (10-20) Glucose (70-99(Fasting)) mg/dl POC Glucose 110 H (70-99) mg/dl Lactate (0.4-2.0) mmol/L Calcium (8.6-10.3) mg/dl Magnesium (1.7-2.4) mg/dl Total Bilirubin (0.2-1.0) mg/dl AST (13-39) U/L ALT (7-52) U/L Alkaline Phosphatase (34-104) U/L Total Protein (6.0-8.3) gm/dl Albumin (3.4-5.0) gm/dl Globulin (2.5-4.0) gm/dl Albumin/Globulin Ratio (0.9-2) Lipase (11-82) U/L Stl C. cayetanensis PCR Stool Rotavirus A PCR Stl Adenov F 40/41 PCR Stool Astrovirus (PCR) Stool Campylobacter PCR Stl C. diff Tox B Gene Stool Cryptosporidium PCR Stl E.coli Shiga Tox PCR Stl Enterotoxigenic E PCR Stool EAEC (PCR) Stl E. histolytica PCR Stool Giardia Lamblia PCR Stool Salmonella PCR Stool Sapovirus (PCR) Stl P. shigelloides PCR Stl Shigella/EIEC PCR St Y.enterocolitica PCR Stool Vibrio (PCR) Stl Vibrio cholerae PCR Stl Norovirus GI/GII PCR SARS-CoV-2, RNA, NAAT (NEGATIVE) 02/08/23 02/08/23 02/07/23 Range/Units 02:14 00:10 17:13 WBC (4.8-10.8) K/ul RBC (4.70-6.10) M/uL Hgb (14.0-18.0) g/dl Hct (42.0-52.0) % MCV (80.0-100.0) fL MCH (25.0-34.0) pg MCHC (32.0-36.0) g/dL RDW Std Deviation (36.4-46.3) fL RDW Coeff of Ahsan (11.5-14.5) % Plt Count (130-400) K/uL MPV (9.4-12.4) fL Immature Gran % (Auto) % Neut % (Auto) % Lymph % (Auto) % Carlton % (Auto) % Eos % (Auto) % Baso % (Auto) % Neut # (Auto) (1.40-6.50) K/uL Lymph # (Auto) (1.2-3.4) K/uL Carlton # (Auto) (0.11-0.59) K/uL Eos # (Auto) (0-0.50) K/uL Baso # (Auto) (0-0.2) K/uL Immature Gran # (Auto) (0.01-0.20) K/uL PT (9.0-12.0) Seconds INR (0.9-1.1) Sodium (136-145) mmol/L Potassium (3.5-5.1) mmol/L Chloride (98-107) mmol/L Carbon Dioxide (21-32) mmol/L Anion Gap (3-11) BUN (6-23) mg/dl Creatinine (0.6-1.4) mg/dl Est Cr Clr Drug Dosing ml/min Est GFR ( Amer) ml/min Est GFR (Non-Af Amer) ml/min BUN/Creatinine Ratio (10-20) Glucose (70-99(Fasting)) mg/dl POC Glucose 131 H 81 92 (70-99) mg/dl Lactate (0.4-2.0) mmol/L Calcium (8.6-10.3) mg/dl Magnesium (1.7-2.4) mg/dl Total Bilirubin (0.2-1.0) mg/dl AST (13-39) U/L ALT (7-52) U/L Alkaline Phosphatase (34-104) U/L Total Protein (6.0-8.3) gm/dl Albumin (3.4-5.0) gm/dl Globulin (2.5-4.0) gm/dl Albumin/Globulin Ratio (0.9-2) Lipase (11-82) U/L Stl C. cayetanensis PCR Stool Rotavirus A PCR Stl Adenov F PCR Stool Astrovirus (PCR) Stool Campylobacter PCR Stl C. diff Tox B Gene Stool Cryptosporidium PCR Stl E.coli Shiga Tox PCR Stl Enterotoxigenic E PCR Stool EAEC (PCR) Stl E. histolytica PCR Stool Giardia Lamblia PCR Stool Salmonella PCR Stool Sapovirus (PCR) Stl P. shigelloides PCR Stl Shigella/EIEC PCR St Y.enterocolitica PCR Stool Vibrio (PCR) Stl Vibrio cholerae PCR Stl Norovirus GI/GII PCR SARS-CoV-2, RNA, NAAT (NEGATIVE) 02/07/23 02/07/23 02/07/23 Range/Units 13:15 12:54 12:52 WBC (4.8-10.8) K/ul RBC (4.70-6.10) M/uL Hgb (14.0-18.0) g/dl Hct (42.0-52.0) % MCV (80.0-100.0) fL MCH (25.0-34.0) pg MCHC (32.0-36.0) g/dL RDW Std Deviation (36.4-46.3) fL RDW Coeff of Ahsan (11.5-14.5) % Plt Count (130-400) K/uL MPV (9.4-12.4) fL Immature Gran % (Auto) % Neut % (Auto) % Lymph % (Auto) % Carlton % (Auto) % Eos % (Auto) % Baso % (Auto) % Neut # (Auto) (1.40-6.50) K/uL Lymph # (Auto) (1.2-3.4) K/uL Carlton # (Auto) (0.11-0.59) K/uL Eos # (Auto) (0-0.50) K/uL Baso # (Auto) (0-0.2) K/uL Immature Gran # (Auto) (0.01-0.20) K/uL PT (9.0-12.0) Seconds INR (0.9-1.1) Sodium (136-145) mmol/L Potassium (3.5-5.1) mmol/L Chloride (98-107) mmol/L Carbon Dioxide (21-32) mmol/L Anion Gap (3-11) BUN (6-23) mg/dl Creatinine (0.6-1.4) mg/dl Est Cr Clr Drug Dosing ml/min Est GFR ( Amer) ml/min Est GFR (Non-Af Amer) ml/min BUN/Creatinine Ratio (10-20) Glucose (70-99(Fasting)) mg/dl POC Glucose (70-99) mg/dl Lactate 0.9 (0.4-2.0) mmol/L Calcium (8.6-10.3) mg/dl Magnesium (1.7-2.4) mg/dl Total Bilirubin (0.2-1.0) mg/dl AST (13-39) U/L ALT (7-52) U/L Alkaline Phosphatase (34-104) U/L Total Protein (6.0-8.3) gm/dl Albumin (3.4-5.0) gm/dl Globulin (2.5-4.0) gm/dl Albumin/Globulin Ratio (0.9-2) Lipase 42 (11-82) U/L Stl C. cayetanensis PCR Stool Rotavirus A PCR Stl Adenov F 40/41 PCR Stool Astrovirus (PCR) Stool Campylobacter PCR Stl C. diff Tox B Gene Stool Cryptosporidium PCR Stl E.coli Shiga Tox PCR Stl Enterotoxigenic E PCR Stool EAEC (PCR) Stl E. histolytica PCR Stool Giardia Lamblia PCR Stool Salmonella PCR Stool Sapovirus (PCR) Stl P. shigelloides PCR Stl Shigella/EIEC PCR St Y.enterocolitica PCR Stool Vibrio (PCR) Stl Vibrio cholerae PCR Stl Norovirus GI/GII PCR SARS-CoV-2, RNA, NAAT NEGATIVE (NEGATIVE) (2) Abdominal pain Abdominal location: left lower quadrant Qualified Code(s): R10.32 - Left lower quadrant pain
[2023-02-08] MEDS ORDERED: Nursing to Pharmacy Communication SCH (11:30)
[2023-02-08 11:46] LABS: Adenovirus F 40/41 PCR Not Detected (NotDetected); Astrovirus PCR Not Detected (NotDetected); Campylobacter PCR Not Detected (NotDetected); Cryptosporidium PCR Not Detected (NotDetected); Cyclospora cayetanensis PCR Not Detected (NotDetected); Entamoeba histolytica PCR Not Detected (NotDetected); Enteroaggregative E.coli(EAEC) Not Detected (NotDetected); Enteropathogenic E.coli (EPEC) Not Detected (NotDetected); Enterotoxigenic E.coli (ETEC) Not Detected (NotDetected); Giardia lamblia PCR Not Detected (NotDetected); Norovirus GI/GII PCR Not Detected (NotDetected); Plesiomonas shigelloides PCR Not Detected (NotDetected); Rotavirus A PCR Not Detected (NotDetected); Salmonella PCR Not Detected (NotDetected); Sapovirus PCR Not Detected (NotDetected); Shiga-like Toxin E.coli (STEC) Not Detected (NotDetected); Shigella/Enteroinvasive E.coli Not Detected (NotDetected); Vibrio cholerae PCR Not Detected (NotDetected); Vibrio species PCR Not Detected (NotDetected); Yersinia enterocolitica PCR Not Detected (NotDetected)
[2023-02-08] MEDS: ENOXAPARIN INJ 40 MG/0.4 ML SYR SQ SCH (17:36)
[2023-02-08] MEDS: SERTRALINE HCL 50 MG TABLET PO SCH (20:11)
--- NOTE | 2023-02-08 21:50 | Hospitalist Progress Note ---
Date of Service February 08, 2023 Assessment & Plan (1) Acute diverticulitis: Plan: -Admit to med/surge -The patient is currently afebrile, hemodynamically stable, and stable on RA -Has been experiencing LLQ abd pain and non-bloody diarrhea since Saturday -Outpatient CT of the abd/pelvis today shows acute diverticulitis with a 2.6 cm area in the distal sigmoid colon which may represent a contained perforation -Mild leukocytosis, lactate WNL, evaluated by Gen Surgery who recs conservative management for now, they will continue to follow -S/P one dose of Zosyn in the ED, will continue with Zosyn q8h for now -Will keep NPO except meds for now, continue IV fluids while NPO -Pain control with prn IV tylenol and IV morphine for severe pain -BL SCD's and Sub-Q lovenox for DVT PPX -AM CBC, CMP, Mag, PT/INR On 02/08 Will continue current antibiotics, will monitor and treat conservatively This is the patient's first episode of diverticulitis (2) Diarrhea: Plan: -Stool cultures and C. diff screen ordered (3) Hypertension: Plan: -Stable -Hold Triamterene-HCTZ for now while NPO to avoid dehydration and hypotension (4) Type 2 diabetes mellitus: Plan: -Hold metformin -Monitor BSG q6h while NPO, goal is 110-140 -Start 5 units lantus BID and correction factor of 50 while npo, can escalate as needed -NPO except meds for now (5) Dyslipidemia: Plan: -Continue statin (6) ZULMA (obstructive sleep apnea): Plan: -HS CPAP ordered Plan The patient was discussed with Dr. Morel at the time of the admission Admission and Anticipated Discharge Date Admission Date: February 07, 2023 Subjective Patient reports he continues to have pain in his abdomen. Review of Systems Review of Systems: All systems reviewed & are unremarkable except as noted in HPI & below Physical Exam Physical Exam: Patient appears calm Abd: soft, tender to lower abdomen. Results & Data Results & Data Vital Signs (Past 12 Hours) Vital Signs Temp Pulse Resp BP Pulse Ox O2 Del Method 02/08/23 20:09 37.1 C 69 18 142/72 H 97 Room Air 02/08/23 14:37 37.0 C 60 18 144/66 H 94 Room Air PG Care Time/CCT Total # of Minutes Spent Total Time Spent with Patient: Total time spent is greater than 50% in coordination of care (as documented) at patient's floor/unit and/or counseling patient: Coding Level of Care Code 56997 SUB INP/OBS CARE 2/35MIN Diagnoses Acute diverticulitis K57.92 Diarrhea R19.7 Hypertension I10 Type 2 diabetes mellitus E11.9 Diabetes mellitus complication status: without complication Diabetes mellitus custodial insulin use: without marine oil terminal superintendent use Dyslipidemia E78.5 ZULMA (obstructive sleep apnea) G47.33 (4) Type 2 diabetes mellitus Diabetes mellitus complication status: without complication Diabetes mellitus marine oil terminal superintendent insulin use: without marine oil terminal superintendent use Qualified Code(s): E11.9 - Type 2 diabetes mellitus without complications
[2023-02-09] MEDS: PIPERACILLIN/TAZOBACTAM 4.5 GM in DEXTROSE 5% 100 ML IV SCH ×3 (01:41→18:28)
--- NOTE | 2023-02-09 05:05 | Surgery Progress Note ---
Date of Service February 09, 2023 Assessment & Plan (1) Acute diverticulitis: Plan: Patient has been admitted on the hospitalist service. Proceed as follows: Continue analgesics Continue antiemetics Continue antibiotics in the form of Zosyn We will continue clear liquids until patient's appetite has improved Increase mobilization as able Check a.m. labs when available Lovenox is in place for DVT prevention Admission and Anticipated Discharge Date Admission Date: February 07, 2023 Supervising Physician Co-Signing Physician Notes pnt s&e, agree with above. admitted with diverticulitis, pain improving but still present. wbc normalized. will advance diet as symptoms improve. Subjective Patient is resting comfortably in bed. He is tolerating clear liquids without nausea or vomiting but does report some lower abdominal pain. He does report a poor appetite. He notes he had a bowel movement last night which caused considerable pain but this has resolved. Physical Exam Gastrointestinal (Abdomen): Abdomen is soft and nondistended without rebound tenderness or guarding. Patient did have pain with palpation greatest in the left lower quadrant. Results & Data Vital Signs (Past 12 Hours) Vital Signs Temp Pulse Resp BP Pulse Ox O2 Del Method 02/08/23 20:09 37.1 C 69 18 142/72 H 97 Room Air PG Care Time/CCT Total # of Minutes Spent Total Time Spent with Patient: Total time spent is greater than 50% in coordination of care (as documented) at patient's floor/unit and/or counseling patient: Coding Level of Care Code 76578 SUB INP/OBS CARE 12/12MIN Diagnoses Acute diverticulitis K57.92
[2023-02-09 06:42] LABS: Basophils # (auto) 0.05 K/uL (0-0.2); Basophils % (auto) 0.5 %; Eosinophils # (auto) 0.28 K/uL (0-0.50); Eosinophils % (auto) 2.6 %; Hematocrit (blood only) 42.2 % (42.0-52.0); Hemoglobin 14.7 g/dl (14.0-18.0); Immature Granulocytes # (auto) 0.03 K/uL (0.01-0.20); Immature Granulocytes % (auto) 0.3 %; Lymphocytes # (auto) 1.81 K/uL (1.2-3.4); Mean Corpuscular Hemoglobin 31.1 pg (25.0-34.0); Mean Corpuscular Hgb Conc 34.8 g/dL (32.0-36.0); Mean Corpuscular Volume 89.2 fL (80.0-100.0); Mean Platelet Volume 9.8 fL (9.4-12.4); Monocytes # (auto) 0.84 K/uL (0.11-0.59); Monocytes % (auto) 7.9 %; Neutrophils # (auto) 7.63 K/uL (1.40-6.50); Neutrophils % (auto) 71.7 %; Platelet Count 159 K/uL (130-400); RDW Coefficient of Variation 12.5 % (11.5-14.5); RDW Standard Deviation 41.2 fL (36.4-46.3); Red Blood Count 4.73 M/uL (4.70-6.10); White Blood Count 10.64 K/ul (4.8-10.8)
[2023-02-09 06:48] LABS: Albumin Globulin Ratio 1.3 (0.9-2); Albumin Level 3.5 gm/dl (3.4-5.0); BUN Creatinine Ratio 11.9 (10-20); Bilirubin,Total 0.8 mg/dl (0.2-1.0); Calcium 8.7 mg/dl (8.6-10.3); Creatinine Clr Calc Pharmacy 98.1 ml/min; Est GFR (African American) 96.6 ml/min; Est GFR (Non-African American) 83.3 ml/min; Globulin 2.7 gm/dl (2.5-4.0); Potassium 3.9 mmol/L (3.5-5.1); Total Protein 6.2 gm/dl (6.0-8.3)
[2023-02-09 07:29] LABS: INR 1.1 (0.9-1.1); Prothrombin Time 11.5 Seconds (9.0-12.0)
[2023-02-09] MEDS: INSULIN ASPART PER UNIT CHARGE SC SCH ×4 (08:38→20:27)
[2023-02-09] MEDS: ENOXAPARIN INJ 40 MG/0.4 ML SYR SQ SCH (18:30)
[2023-02-09] MEDS: SERTRALINE HCL 50 MG TABLET PO SCH (20:53)
--- NOTE | 2023-02-09 22:54 | Hospitalist Progress Note ---
Date of Service February 09, 2023 Assessment & Plan (1) Acute diverticulitis: Plan: -Admit to med/surge -The patient is currently afebrile, hemodynamically stable, and stable on RA -Has been experiencing LLQ abd pain and non-bloody diarrhea since Saturday -Outpatient CT of the abd/pelvis today shows acute diverticulitis with a 2.6 cm area in the distal sigmoid colon which may represent a contained perforation -Mild leukocytosis, lactate WNL, evaluated by Gen Surgery who recs conservative management for now, they will continue to follow -S/P one dose of Zosyn in the ED, will continue with Zosyn q8h for now -Will keep NPO except meds for now, continue IV fluids while NPO -Pain control with prn IV tylenol and IV morphine for severe pain -BL SCD's and Sub-Q lovenox for DVT PPX -AM CBC, CMP, Mag, PT/INR On 02/08 Will continue current antibiotics, will monitor and treat conservatively This is the patient's first episode of diverticulitis On 02/09 symptoms have improved. tolerating diet. Continues to have pain but is more tolerable to palpation. will continue current antibiotics. (2) Diarrhea: Plan: -Stool cultures and C. diff screen ordered (3) Hypertension: Plan: -Stable -Hold Triamterene-HCTZ for now while NPO to avoid dehydration and hypotension (4) Type 2 diabetes mellitus: Plan: -Hold metformin -Monitor BSG q6h while NPO, goal is 110-140 -Start 5 units lantus BID and correction factor of 50 while npo, can escalate as needed -NPO except meds for now (5) Dyslipidemia: Plan: -Continue statin (6) ZULMA (obstructive sleep apnea): Plan: -HS CPAP ordered Admission and Anticipated Discharge Date Admission Date: February 07, 2023 Subjective Patient reports his pain has improved. Review of Systems Review of Systems: All systems reviewed & are unremarkable except as noted in HPI & below Physical Exam Physical Exam: Patient appears calm Abd: soft, tender to left lower abdomen, only tender to deep palpation (improvement from day prior) Results & Data Results & Data Vital Signs (Past 12 Hours) Vital Signs Temp Pulse Resp BP BP Pulse Ox O2 Del Method 02/09/23 20:35 36.6 C 74 18 137/77 95 Room Air 02/09/23 14:47 37.0 C 68 18 132/82 93 Room Air PG Care Time/CCT Total # of Minutes Spent Total Time Spent with Patient: Total time spent is greater than 50% in coordination of care (as documented) at patient's floor/unit and/or counseling patient: Coding Level of Care Code 77543 SUB INP/OBS CARE 2/35MIN Diagnoses Acute diverticulitis K57.92 Diarrhea R19.7 Hypertension I10 Type 2 diabetes mellitus E11.9 Diabetes mellitus complication status: without complication Diabetes mellitus usp insulin use: without usp use Dyslipidemia E78.5 ZULMA (obstructive sleep apnea) G47.33 (4) Type 2 diabetes mellitus Diabetes mellitus complication status: without complication Diabetes mellitus exterminator helper insulin use: without usp use Qualified Code(s): E11.9 - Type 2 diabetes mellitus without complications
[2023-02-10] MEDS: PIPERACILLIN/TAZOBACTAM 4.5 GM in DEXTROSE 5% 100 ML IV SCH ×3 (01:24→18:28)
--- NOTE | 2023-02-10 04:55 | Surgery Progress Note ---
Date of Service February 10, 2023 Assessment & Plan (1) Acute diverticulitis: Plan: Patient has been admitted on the hospitalist service. Proceed as follows: Continue analgesics Continue antiemetics Continue antibiotics in the form of Zosyn Continue diet as tolerated Continue activity as tolerated Check a.m. labs when available Lovenox is in place for DVT prevention Admission and Anticipated Discharge Date Admission Date: February 07, 2023 Subjective Patient is resting comfortably in bed. He noted that he tolerated diet adv ancement which caused some minor abdominal pain but it is improved since time of admission. He reports having a bowel movement over the past 24 hours. No nausea or vomiting reported. Physical Exam Gastrointestinal (Abdomen): Abdomen is soft and nonrigid with slight tenderness to palpation in the left l ower quadrant. No rebound tenderness or guarding noted. Results & Data Vital Signs (Past 12 Hours) Vital Signs Temp Pulse Resp BP Pulse Ox O2 Del Method 02/09/23 20:35 36.6 C 74 18 137/77 95 Room Air PG Care Time/CCT Total # of Minutes Spent Total Time Spent with Patient: Total time spent is greater than 50% in coordination of care (as documented) at patient's floor/unit and/or counseling patient: Coding Level of Care Code 74141 SUB INP/OBS CARE 12/12MIN Diagnoses Acute diverticulitis K57.92
[2023-02-10 07:15] LABS: Basophils # (auto) 0.05 K/uL (0-0.2); Basophils % (auto) 0.5 %; Eosinophils # (auto) 0.31 K/uL (0-0.50); Eosinophils % (auto) 3.2 %; Hematocrit (blood only) 44.6 % (42.0-52.0); Immature Granulocytes # (auto) 0.02 K/uL (0.01-0.20); Immature Granulocytes % (auto) 0.2 %; Lymphocytes # (auto) 2.14 K/uL (1.2-3.4); Lymphocytes % (auto) 22.3 %; Mean Corpuscular Hemoglobin 30.4 pg (25.0-34.0); Mean Corpuscular Hgb Conc 33.6 g/dL (32.0-36.0); Mean Corpuscular Volume 90.3 fL (80.0-100.0); Mean Platelet Volume 9.6 fL (9.4-12.4); Monocytes % (auto) 8.3 %; Neutrophils # (auto) 6.27 K/uL (1.40-6.50); Neutrophils % (auto) 65.5 %; Platelet Count 177 K/uL (130-400); RDW Coefficient of Variation 12.4 % (11.5-14.5); RDW Standard Deviation 41.3 fL (36.4-46.3); Red Blood Count 4.94 M/uL (4.70-6.10); White Blood Count 9.59 K/ul (4.8-10.8)
[2023-02-10 07:36] LABS: Albumin Globulin Ratio 1.2 (0.9-2); Albumin Level 3.6 gm/dl (3.4-5.0); BUN Creatinine Ratio 14.7 (10-20); Bilirubin,Total 0.6 mg/dl (0.2-1.0); Creatinine Clr Calc Pharmacy 97.2 ml/min; Est GFR (African American) 95.5 ml/min; Est GFR (Non-African American) 82.4 ml/min; Globulin 2.9 gm/dl (2.5-4.0); Potassium 3.9 mmol/L (3.5-5.1); Total Protein 6.5 gm/dl (6.0-8.3)
[2023-02-10 07:41] LABS: INR 1.1 (0.9-1.1); Prothrombin Time 11.4 Seconds (9.0-12.0)
[2023-02-10] MEDS: INSULIN ASPART PER UNIT CHARGE SC SCH ×4 (08:28→21:09)
[2023-02-10] MEDS: ENOXAPARIN INJ 40 MG/0.4 ML SYR SQ SCH (18:27)
[2023-02-10] MEDS: SERTRALINE HCL 50 MG TABLET PO SCH (20:54)
--- NOTE | 2023-02-10 20:57 | Hospitalist Progress Note ---
Date of Service February 10, 2023 Assessment & Plan (1) Acute diverticulitis: Plan: -Admit to med/surge -The patient is currently afebrile, hemodynamically stable, and stable on RA -Has been experiencing LLQ abd pain and non-bloody diarrhea since Saturday -Outpatient CT of the abd/pelvis today shows acute diverticulitis with a 2.6 cm area in the distal sigmoid colon which may represent a contained perforation -Mild leukocytosis, lactate WNL, evaluated by Gen Surgery who recs conservative management for now, they will continue to follow -S/P one dose of Zosyn in the ED, will continue with Zosyn q8h for now -Will keep NPO except meds for now, continue IV fluids while NPO -Pain control with prn IV tylenol and IV morphine for severe pain -BL SCD's and Sub-Q lovenox for DVT PPX -AM CBC, CMP, Mag, PT/INR On 02/08 Will continue current antibiotics, will monitor and treat conservatively This is the patient's first episode of diverticulitis On 02/10 symptoms have improved. tolerating diet. Pain is mild. Will transition to PO meds on 02/11 with likely discharge. will consider ultrasound of diverticulum on 02/11 (2) Diarrhea: Plan: -Stool cultures and C. diff screen ordered (3) Hypertension: Plan: -Stable -Hold Triamterene-HCTZ for now while NPO to avoid dehydration and hypotension (4) Type 2 diabetes mellitus: Plan: -Hold metformin -Monitor BSG q6h while NPO, goal is 110-140 -Start 5 units lantus BID and correction factor of 50 while npo, can escalate as needed (5) Dyslipidemia: Plan: -Continue statin (6) ZULMA (obstructive sleep apnea): Plan: -HS CPAP ordered Admission and Anticipated Discharge Date Admission Date: February 07, 2023 Subjective Patiet reports feeling better. He did have pain today when he had a bm, but his pain subsided. Review of Systems Review of Systems: All systems reviewed & are unremarkable except as noted in HPI & below Physical Exam Physical Exam: Patient appears calm Abd: soft, no rebound tenderness, nontender Results & Data Results & Data Vital Signs (Past 12 Hours) Vital Signs Temp Pulse Resp BP Pulse Ox O2 Del Method 02/10/23 19:54 36.9 C 65 18 130/79 96 Room Air 02/10/23 15:53 36.5 C 62 18 136/84 93 Room Air PG Care Time/CCT Total # of Minutes Spent Total Time Spent with Patient: Total time spent is greater than 50% in coordination of care (as documented) at patient's floor/unit and/or counseling patient: Coding Level of Care Code 14733 SUB INP/OBS CARE 2/35MIN Diagnoses Acute diverticulitis K57.92 Diarrhea R19.7 Hypertension I10 Type 2 diabetes mellitus E11.9 Diabetes mellitus complication status: without complication Diabetes mellitus intermediate accountant insulin use: without intermediate accountant use Dyslipidemia E78.5 ZULMA (obstructive sleep apnea) G47.33 (4) Type 2 diabetes mellitus Diabetes mellitus complication status: without complication Diabetes mellitus intermediate insulin use: without intermediate use Qualified Code(s): E11.9 - Type 2 diabetes mellitus without complications
[2023-02-11] MEDS: PIPERACILLIN/TAZOBACTAM 4.5 GM in DEXTROSE 5% 100 ML IV SCH ×2 (02:10→09:33)
[2023-02-11] MEDS: INSULIN ASPART PER UNIT CHARGE SC SCH (09:09)
[2023-02-11 09:24] LABS: Hematocrit (blood only) 44.8 % (42.0-52.0); Hemoglobin 15.6 g/dl (14.0-18.0); Mean Corpuscular Hemoglobin 30.8 pg (25.0-34.0); Mean Corpuscular Hgb Conc 34.8 g/dL (32.0-36.0); Mean Corpuscular Volume 88.5 fL (80.0-100.0); Mean Platelet Volume 9.2 fL (9.4-12.4); Platelet Count 202 K/uL (130-400); RDW Coefficient of Variation 12.4 % (11.5-14.5); RDW Standard Deviation 40.3 fL (36.4-46.3); Red Blood Count 5.06 M/uL (4.70-6.10)
[2023-02-11 09:49] LABS: C Reactive Protein 4.95 mg/dl (0-0.5); Calcium 9.1 mg/dl (8.6-10.3); Creatinine Clr Calc Pharmacy 93.5 ml/min; Est GFR (African American) 91.1 ml/min; Est GFR (Non-African American) 78.6 ml/min; Potassium 3.7 mmol/L (3.5-5.1)
--- NOTE | 2023-02-11 10:21 | Surgery Progress Note ---
Date of Service February 11, 2023 Assessment & Plan (1) Acute diverticulitis: (2) Abdominal pain: Plan 53 year-old male with 4 day history of abdominal pain with diarrhea. Found to have acute diverticulitis with possible abscess measuring 2.6 cm. Leukocytosis of 12.9K. Febrile here in ED. 02/11/2023: avss leukocytosis resolved abdominal pain continues to improve Plan: Okay from surgical standpoint for discharge and transition to oral antibiotics to complete a 14 day total course of IV and oral antibiotics low fiber diet for 2-4 weeks our services signing off, please call with questions/concerns. dr. Cosme has seen and examined patient, agrees with above. Admission and Anticipated Discharge Date Admission Date: February 07, 2023 Supervising Physician Co-Signing Physician Notes I have seen and examined the patient personally and agree with the above assessment and plan. He is doing quite well. He may transition to oral antibiotics complete 14-day course. Please call with questions or concerns. Subjective feeling better tolerating solid foods no n,v pain minimal Physical Exam Constitutional: WD/WN, vitals as above no acute distress and not ill appearing Gastrointestinal (Abdomen): Inspection/Auscultation: abdomen normal to inspection; abdomen not distended Percussion/Palpation: + abdomen tender (mild in LLQ on deep palpation) and abdomen soft; no guarding and abdomen not rigid Psychiatric: A+Ox3, euthymic affect Results & Data Vital Signs (Past 12 Hours) Vital Signs Temp Pulse Resp BP Pulse Ox O2 Del Method 02/11/23 07:57 36.7 C 68 16 132/70 95 Room Air Laboratory Results 02/11/23 02/11/23 02/11/23 Range/Units 08:45 08:45 08:45 WBC 7.90 (4.8-10.8) K/ul RBC 5.06 (4.70-6.10) M/uL Hgb 15.6 (14.0-18.0) g/dl Hct 44.8 (42.0-52.0) % MCV 88.5 (80.0-100.0) fL MCH 30.8 (25.0-34.0) pg MCHC 34.8 (32.0-36.0) g/dL RDW Std Deviation 40.3 (36.4-46.3) fL RDW Coeff of Ahsan 12.4 (11.5-14.5) % Plt Count 202 (130-400) K/uL MPV 9.2 L (9.4-12.4) fL Sodium 142 (136-145) mmol/L Potassium 3.7 (3.5-5.1) mmol/L Chloride 109 H (98-107) mmol/L Carbon Dioxide 26 (21-32) mmol/L Anion Gap 7 (3-11) BUN 17 (6-23) mg/dl Creatinine 1.06 (0.6-1.4) mg/dl Est Cr Clr Drug Dosing 93.5 ml/min Est GFR ( Amer) 91.1 ml/min Est GFR (Non-Af Amer) 78.6 ml/min BUN/Creatinine Ratio 16.0 (10-20) Glucose 110 H (70-99(Fasting)) mg/dl POC Glucose (70-99) mg/dl Estimat Average Glucose Pending Hemoglobin A1c Pending Calcium 9.1 (8.6-10.3) mg/dl C-Reactive Protein 4.95 H (0-0.5) mg/dl Triglycerides 128 (0-150) mg/dl Cholesterol 145 (0-200) mg/dl LDL Cholesterol, Calc 90 mg/dl VLDL Cholesterol, Calc 26 (0-30) mg/dl HDL Cholesterol 29 mg/dl Cholesterol/HDL Ratio 5.0 (0-5) 02/11/23 02/10/23 02/10/23 Range/Units 08:11 20:45 17:03 WBC (4.8-10.8) K/ul RBC (4.70-6.10) M/uL Hgb (14.0-18.0) g/dl Hct (42.0-52.0) % MCV (80.0-100.0) fL MCH (25.0-34.0) pg MCHC (32.0-36.0) g/dL RDW Std Deviation (36.4-46.3) fL RDW Coeff of Ahsan (11.5-14.5) % Plt Count (130-400) K/uL MPV (9.4-12.4) fL Sodium (136-145) mmol/L Potassium (3.5-5.1) mmol/L Chloride (98-107) mmol/L Carbon Dioxide (21-32) mmol/L Anion Gap (3-11) BUN (6-23) mg/dl Creatinine (0.6-1.4) mg/dl Est Cr Clr Drug Dosing ml/min Est GFR ( Amer) ml/min Est GFR (Non-Af Amer) ml/min BUN/Creatinine Ratio (10-20) Glucose (70-99(Fasting)) mg/dl POC Glucose 108 H 185 H 90 (70-99) mg/dl Estimat Average Glucose Hemoglobin A1c Calcium (8.6-10.3) mg/dl C-Reactive Protein (0-0.5) mg/dl Triglycerides (0-150) mg/dl Cholesterol (0-200) mg/dl LDL Cholesterol, Calc mg/dl VLDL Cholesterol, Calc (0-30) mg/dl HDL Cholesterol mg/dl Cholesterol/HDL Ratio (0-5) 02/10/23 Range/Units 12:58 WBC (4.8-10.8) K/ul RBC (4.70-6.10) M/uL Hgb (14.0-18.0) g/dl Hct (42.0-52.0) % MCV (80.0-100.0) fL MCH (25.0-34.0) pg MCHC (32.0-36.0) g/dL RDW Std Deviation (36.4-46.3) fL RDW Coeff of Ahsan (11.5-14.5) % Plt Count (130-400) K/uL MPV (9.4-12.4) fL Sodium (136-145) mmol/L Potassium (3.5-5.1) mmol/L Chloride (98-107) mmol/L Carbon Dioxide (21-32) mmol/L Anion Gap (3-11) BUN (6-23) mg/dl Creatinine (0.6-1.4) mg/dl Est Cr Clr Drug Dosing ml/min Est GFR ( Amer) ml/min Est GFR (Non-Af Amer) ml/min BUN/Creatinine Ratio (10-20) Glucose (70-99(Fasting)) mg/dl POC Glucose 121 H (70-99) mg/dl Estimat Average Glucose Hemoglobin A1c Calcium (8.6-10.3) mg/dl C-Reactive Protein (0-0.5) mg/dl Triglycerides (0-150) mg/dl Cholesterol (0-200) mg/dl LDL Cholesterol, Calc mg/dl VLDL Cholesterol, Calc (0-30) mg/dl HDL Cholesterol mg/dl Cholesterol/HDL Ratio (0-5) (2) Abdominal pain Abdominal location: left lower quadrant Qualified Code(s): R10.32 - Left lower quadrant pain
[2023-02-11] MEDS ORDERED: INSULIN ASPART PER UNIT CHARGE SC SCH (11:30)
[2023-02-11 11:50] LABS: Estimated Average Glucose 120 mg/dl; Hemoglobin A1C 5.8 % (4.5-5.6)
--- NOTE | 2023-02-11 12:15 | Discharge Summary ---
Date of Service February 11, 2023 Admission HPI Per Admitting Provider Elliot is a 53 year old male with a PMH significant for DM II, dyslipidemia, ZULMA, HTN, Meniere's disease, and anxiety who presented to the [facility] ED on 02/07/23 at the recommendation of his PCP for abnormal outpatient CT results. Per the ED staff and chart review, the patient has been experiencing progressive abdominal pain and diarrhea. He was seen for these symptoms earlier today by his PCP who ordered a CT of the abd/pelvis with IV contrast. The CT was read as "1. There is a large diverticulum versus contained perforation along the left side of the distal sigmoid colon which measures 2.6 cm. This demonstrates surrounding inflammatory change is consistent with an acute diverticulitis.2. Cholelithiasis. 3. Heterogeneous area of enhancement within the upper pole of the left kidney. No surrounding inflammatory change. This is indeterminate but could be due to a focal pyelonephritis. Recommend correlation with urinalysis.". His PCP recommended he come to the ED for further evaluation and treatment. In the ED the patient was found to be afebrile, hemodynamically stable, and stable on RA. Labs were remarkable for a leukocytosis of 12.94 with left shift of 9.32, stable Hgb and platelets, stable Cr and electrolytes, lactate of 0.9, LFT's WNL, lipase of 42, UA with 2+ ketones otherwise WNL, and covid negative. The ED staff spoke with General Surgery who recommended conservative management for now with IV antibiotics, bowel rest, and IV fluids. Prior to admission the patient was given a dose of Zosyn and a 1L NSS bolus. At the time of the exam the patient was lying in bed in no acute distress, he had just been evaluated by the Surgical Team. He states that he started to develop severe, intermittent, sharp, LLQ abdominal pain on Saturday. He states that he then began to develop multiple episodes daily of non-bloody diarrhea. He states that he would often get the sensation that he needed to have a bowel movement but would then either have a small BM or none at all. He denies the abdominal pain radiating anywhere else, he does not think his pain is influenced with eating or drinking. He did not take any medications for his symptoms as he thought it was a viral GI infection. He denies recent fevers or chills, chest pain, nausea, vomiting, dysuria, hematuria, melena, LE swelling and recent trauma. We discussed code status, the patient is a Full Code and would want his to make medical decisions for him if he could not make them himself. Please refer to Dr. Morel's attestation for any changes to the treatment plan Principal Diagnosis acute diverticulitis Discharge Exam Patient appears calm Not using accessory muscles to breath. moves all 4 extremities Abd: soft, no rebound tenderness, nontender Discharge Data Allergies Allergy/AdvReac Type Severity Reaction Status Date / Time No Known Allergies Allergy Unknown Verified 02/07/23 09:29 Consultations 02/07/23 14:46 ED Decision to Admit Stat 02/07/23 14:51 Consult General Surgery Routine Hospital Course (1) Acute diverticulitis: -Admit to med/surge -The patient is currently afebrile, hemodynamically stable, and stable on RA -Has been experiencing LLQ abd pain and non-bloody diarrhea since Saturday -Outpatient CT of the abd/pelvis today shows acute diverticulitis with a 2.6 cm area in the distal sigmoid colon which may represent a contained perforation -Mild leukocytosis, lactate WNL, evaluated by Gen Surgery who recs conservative management for now, they will continue to follow -S/P one dose of Zosyn in the ED, will continue with Zosyn q8h for now -Will keep NPO except meds for now, continue IV fluids while NPO -Pain control with prn IV tylenol and IV morphine for severe pain -BL SCD's and Sub-Q lovenox for DVT PPX -AM CBC, CMP, Mag, PT/INR On 02/08 Will continue current antibiotics, will monitor and treat conservatively This is the patient's first episode of diverticulitis On 02/10 symptoms have improved. tolerating diet. Pain is mild. Will transition to PO meds on 02/11 with likely discharge. On 02/11 Patient's pain has essentially gone away. Patient will be transitioned tonight to augmentin and he will be discharged after his dose of zosyn. Patient will complete 10 days of augmentin to complete a 14 day course. Given that patient has improved, he will not require any further imaging. Patient will remain on a low fiber diet for 28 days. (2) Diarrhea: resolved. (3) Hypertension: -Stable -Hold Triamterene-HCTZ for now while NPO to avoid dehydration and hypotension will resume at discharge (4) Type 2 diabetes mellitus: -Hold metformin -Monitor BSG q6h while NPO, goal is 110-140 -Start 5 units lantus BID and correction factor of 50 while npo, can escalate as needed A!C is 5.8 will resume home meds at discharge (5) Dyslipidemia: -Continue statin (6) ZULMA (obstructive sleep apnea): -HS CPAP ordered Total Time Total Time Spent Total Time Spent (In Minutes): 35 Discharge Plan Discharge Items Patient Disposition: Home - Self-Care Reason For Visit: DIVERTICULITIS Discharge Diagnosis: Diverticulitis Activity: Resume your previous activity Non-emergency contact: Primary Care Provider Call non-emergency contact if: you have any medication questions Follow-up/Referrals: Epifanio Ocampo MD [Primary Care Provider] - Diet: Regular Addtl Attending Provider Instructions: Good morning Mr. Pizano, You were treated for an acute diverticulitis. Thankfully, you responded to treatment and you felt better each day. Your white blood cell count also normalized. Given your rapid clinical improvement in 2-3 days, you do not need repeat imaging. We will continue with your antibiotics to complete a 14 day course. You will take your next dose tonight at 6pm or 7pm. Please take with food. Given that you have improved, you will not need to followup with General Surgery. Please followup with your Primary Care Provider in about 7-10 days. Please continue a low fiber diet for 4 weeks. It was a pleasure taking care of you. Wishing you the best, Adarsh Ellison Pending Studies at Discharge: No Stand-Alone Forms: My [facility] PhotoShelter, Work/School Release, Smoking Cessation Medications and DC Order Prescriptions: New amoxicillin-pot clavulanate 875-125 mg tablet 1 tab PO BID Qty: 20 0RF Continued (DME) lancets [Accu-Chek Softclix Lancets] Misc See Rx Instructions .ROUTE Qty: 100 3RF Rx Instructions: daily as directed, E11.9 (DME) blood sugar diagnostic Strip See Rx Instructions .Route Qty: 100 3RF Rx Instructions: Accu Chek guide me test strips, E11.9, check daily (DME) wear work shoes instead of boots due to [place]'s tendonitis See Rx Instructions .Route .MEDSUPPLY Qty: 1 0RF Rx Instructions: As directed atorvastatin 10 mg tablet 10 mg PO DAILY Qty: 30 11RF Rx Instructions: with supper for cholesterol and diabetes metformin 500 mg tablet extended release 24hr 500 mg PO BID Qty: 60 11RF Rx Instructions: Take with food triamterene-hydrochlorothiazid 37.5-25 mg capsule 1 cap PO QAM Qty: 30 11RF sertraline 100 mg tablet 150 mg PO .QHS Qty: 45 11RF Rx Instructions: Take at bedtime for mood Discharge Orders: Discharge Order (Routine); Ordered 02/11/23 Ordered By: Adarsh Ellison Admission Data Admit Date/Time: 02/07/23 14:51 Attending Provider: Adarsh Ellison Admit Provider: Bebeto Morel Primary Care Provider: Epifanio Ocampo Other Providers: Bebeto Morel ; Tristin Cosme Coding Level of Care Code 46836 INP/OBS DISCH >30 MIN Diagnoses Acute diverticulitis K57.92 Diarrhea R19.7 Hypertension I10 Type 2 diabetes mellitus E11.9 Diabetes mellitus complication status: without complication Diabetes mellitus residential insulin use: without intermediate teacher use Dyslipidemia E78.5 ZULMA (obstructive sleep apnea) G47.33
== END 2023-02-11 14:26 | disposition home or self-care (01) | DRG 392 ==
LOC: ED 12:31 → 3N 14:51 → SUATTDRO 14:51 → 3N 15:23